=== PATIENT | female | born 1950 | race Caucasian/White ===

== ENCOUNTER 2017-10-21 11:24 | Outpatient (CLI) | payer OTHER ==
[~2017-10-21 11:24] MED LIST: INTESTINEX680 MG PO; LEVAQUIN500 MG PO; PERCOCET 5/3251 TAB PO
== END 2017-10-21 11:36 | disposition home or self-care (01) ==
LOC: NUCLEAR 11:24
DX: I82.402 Acute embolism and thrombosis of unspecified deep veins of left lower extremity (principal); I87.2 Venous insufficiency (chronic) (peripheral)

== ENCOUNTER → 2017-10-25 | Outpatient (CLI) | payer OTHER | END | disposition home or self-care (01) | LOC: NUCLEAR 10-24 13:00 | DX: I82.402 Acute embolism and thrombosis of unspecified deep veins of left lower extremity (principal); I87.2 Venous insufficiency (chronic) (peripheral); I73.9 Peripheral vascular disease, unspecified ==

== ENCOUNTER 2017-12-25 01:01 | Emergency (ER) | payer OTHER ==
[~2017-12-25] VITALS: Ht 172.7 cm; Wt 72.6 kg
[2017-12-25] MEDS ORDERED: SYNTHROID50 MCG (01:17)
== END 2017-12-25 09:17 | disposition home or self-care (01) ==
LOC: ER 01:01
DX: S70.02XA Contusion of left hip, initial encounter (principal); S50.02XA Contusion of left elbow, initial encounter; S30.0XXA Contusion of lower back and pelvis, initial encounter; S60.212A Contusion of left wrist, initial encounter; W18.09XA Striking against other object with subsequent fall, initial encounter; Y93.89 Activity, other specified; Y92.481 Parking lot as the place of occurrence of the external cause; Y99.8 Other external cause status

== ENCOUNTER 2019-08-23 09:30 | Outpatient (CLI) | payer OTHER ==
[~2019-08-23 09:30] MED LIST changes: +SYNTHROID50 MCG
== END 2019-08-23 10:00 | disposition home or self-care (01) ==
LOC: NUCLEAR 09:30
DX: M79.662 Pain in left lower leg (principal)

== ENCOUNTER 2021-06-30 06:35 | Day surgery (SDC) | payer OTHER | END 2021-06-30 12:05 | disposition home or self-care (01) | LOC: AMB-ENDOS 06:35 | PROVIDERS: ATTEND Surgery | DX: K62.89 Other specified diseases of anus and rectum (principal) ==

== ENCOUNTER 2024-06-25 09:35 | Outpatient (CLI) | payer OTHER | END 2024-06-25 09:50 | disposition home or self-care (01) | LOC: MRI 09:35 | PROVIDERS: ATTEND Family Medicine | DX: M25.511 Pain in right shoulder (principal) | CPT/HCPCS: 73221 ==